=== PATIENT | male | born 1985 ===

== ENCOUNTER → 2019-01-22 20:38 | Outpatient (ROUT) | payer OTHER, SELFPAY ==
[2019-01-22 21:02] LABS: Cholesterol 303 mg/dL (140-199); HDL Cholesterol 25 mg/dL (40-60); Triglycerides 407 mg/dL (35-150)
== END ==
PROVIDERS: Visit Provider Family Medicine
DX: E78.5 Hyperlipidemia, unspecified (principal)
CPT/HCPCS: 36415; 80061